=== PATIENT | female | born 1930 | race Caucasian/White ===

== ENCOUNTER → 2017-07-02 | Outpatient (CLI) | payer MEDICARE, BC ==
[2017-07-02 15:49] LABS: Blood Urea Nitrogen 30 mg/dL (7-17); Non-African American GFR(MDRD) >60 (>60 ml/min/1.73 sqM)
--- NOTE | 2017-07-02 16:33 | CT ---
CT CHEST FOR PULMONARY EMBOLISM. EXAMINATION TYPE: CT angio chest DATE OF EXAM: 07/02/2017 INDICATION: SOB x3 weeks. CT DLP: 117.7 mGycm, Automated exposure control for dose reduction was used. CONTRAST: Patient injected with 80 mL of Omnipaque 350. COMPARISON: NONE TECHNIQUE: CT of the chest is performed on a spiral scan at 2 mm thick sections. Study is performed with intravenous contrast timed for evaluation for pulmonary embolism. This will limit additional po rtions of the evaluation. 3-D MIP images reconstructed by the technologist are reviewed on the compu ter in the coronal and sagittal planes. FINDINGS: No persistent filling defects are evident to suggest an acute pulmonary embolism. No mediastinal or hilar adenopathy enlarged by CT criteria is evident. The ascending aorta diameter at the level of the main pulmonary artery is 3.2 cm. The main pulmonary artery diameter at the bifur cation is 3.9 cm. Correlate for pulmonary hypertension. There is stranding at the left apex which may be scarring. There is some increased density measuring 0.5 x 0.9 cm underlying mass. Series 5 image 20. Emphysematous changes are changes are present. In t he posterior right midlung pneumonitis changes are present. There is a 0.6 cm nodule within the poste rior lingular base. Series 5 image 87. There is a 1.0 cm nodule anterior right middle lobe base serie s 7. There is a 0.5 cm nodule posterior lateral right lung base. Series 5 image 111. Some pleural thi ckening with spiculation with 0.4 cm is in the anterior lingula. Series 5 image 84. There is a consol idation in the posterior dependent right lung base may be atelectasis or pneumonia. Limited CT section through the upper abdomen are unremarkable. IMPRESSIONS: 1. No acute pulmonary embolism. 2. Enlarged main pulmonary artery , correlate for pulmonary hypertension. 3. Multiple small nodules. Additional workup of the pulmonary nodules is recommended.
== END | disposition home or self-care (01) ==
LOC: RADCTMAIN 15:09
PROVIDERS: ATTEND Internal Medicine Critical Care Medicine
DX: R91.8 Other nonspecific abnormal finding of lung field (principal); I77.89 Other specified disorders of arteries and arterioles; Z86.711 Personal history of pulmonary embolism
CPT/HCPCS: 82565; 84520; 71275; 36415; Q9967

== ENCOUNTER → 2017-09-25 | Outpatient (CLI) | payer MEDICARE, BC ==
[2017-09-25 20:39] LABS: HCT 45.8 % (34.0-46.0); HGB 14.3 gm/dL (11.4-16.0); MCHC 31.3 g/dL (31.0-37.0); MCV 98.9 fL (80.0-100.0); Mean Platelet Volume 8.7; Platelet Count 231 k/uL (150-450); RBC 4.63 m/uL (3.80-5.40); RDW 12.9 % (11.5-15.5); WBC 7.8 k/uL (3.8-10.6)
[2017-09-25 20:41] LABS: ALT 36 U/L (9-52); AST 36 U/L (14-36); Albumin 4.1 g/dL (3.5-5.0); Alkaline Phosphatase 144 U/L (38-126); Anion Gap 9 mmol/L; Blood Urea Nitrogen 27 mg/dL (7-17); Calcium 10.2 mg/dL (8.4-10.2); Carbon Dioxide 29 mmol/L (22-30); Chloride 105 mmol/L (98-107); Glucose 78 mg/dL (74-99); Potassium 4.3 mmol/L (3.5-5.1); Sodium 143 mmol/L (137-145); Total Bilirubin 0.4 mg/dL (0.2-1.3); Total Protein 6.8 g/dL (6.3-8.2)
== END | disposition home or self-care (01) ==
LOC: MMGSC 09:51
PROVIDERS: ATTEND Internal Medicine
DX: R53.83 Other fatigue (principal)
CPT/HCPCS: 36415; 80053; 85027

== ENCOUNTER → 2017-11-18 | Outpatient (CLI) | payer MEDICARE, BC ==
[2017-11-18 13:08] LABS: Blood Urea Nitrogen 20 mg/dL (7-17)
--- NOTE | 2017-11-18 14:10 | CT ---
EXAMINATION TYPE: CT chest w con DATE OF EXAM: 11/18/2017 COMPARISON: 07/02/2017 HISTORY: Multiple lung nodules CT DLP: 266 mGycm Automated exposure control for dose reduction was used. CONTRAST: CT scan of the chest is performed with IV Contrast, patient injected with 100 mL of Isovue 300. FINDINGS: LUNGS: There are diffuse emphysematous changes compatible with significant COPD. Patient noted 5 x 9 mm density left lung apex is stable and unchanged. There is a new lobulated nodule within the left upper lobe measuring 1.5 x 0.8 cm extends close to th e pleura. There is a stable 9 mm nodule anterior segment right upper lobe. There is a stable lingular segment 6 mm left upper lobe pulmonary nodule. MEDIASTINUM: The main right pulmonary artery measures 3.1 cm in diameter and the left measures 3. Aorta demonstrates atherosclerotic changes and appears to be of normal caliber. There is a small pericardial effusion heart is enlarged. OTHER: Small hiatal hernia is seen. Hypertrophic and degenerative change of the spine. Chronic rib d eformity on the right is suggestive of remote trauma. Chronic nodularity to the adrenal glands are st able and indeterminate by CT chest. IMPRESSION: 1. There is a new 1.5 x 0.8 cm lobulated nodule within the left upper lobe. Recommend PET scan. 2. Remaining nodules are stable. 3. Severe emphysema. 4. Correlate for pulmonary arterial hypertension.
== END | disposition home or self-care (01) ==
LOC: RADCTMAIN 12:30
PROVIDERS: ATTEND Internal Medicine Critical Care Medicine
DX: J43.9 Emphysema, unspecified (principal); I27.21 Secondary pulmonary arterial hypertension; R91.8 Other nonspecific abnormal finding of lung field
CPT/HCPCS: 82565; 84520; 71260; 36415; Q9967